=== PATIENT | female | born 2000 | race Hispanic/Latino ===

== ENCOUNTER 2018-12-31 17:17 | Emergency (ER) | payer SELFPAY ==
--- NOTE | 2018-12-31 17:56 | Event Note ---
ED Screening Note Date of service: 12/31/18 Time: 17:54 ED Screening Note: Pt complains of right ankle pain after injury x today This initial assessment/diagnostic orders/clinical plan/treatment(s) is/are subject to change based on patients health status, clinical progression and re-assessment by fellow clinical providers in the ED. Further treatment and workup at subsequent clinical providers discretion. Patient/guardian urged not to elope from the ED as their condition may be serious if not clinically assessed and managed. Initial orders include: Xr
[2018-12-31 17:57] VITALS: BP 146/93
--- NOTE | 2018-12-31 18:38 | XRay Report ---
Right ankle, 3 views INDICATION: Lateral pain following injury today FINDINGS: The ankle mortise is intact. No fracture or dislocation. No spurring or arthritic change. T here is moderate swelling over the lateral malleolus however. Again no underlying bone or joint abnor mality identified. Signer Name: Evan Bear MD Signed: 12/31/2018 6:33 PM Workstation Name: [id number]
[2018-12-31] MEDS ORDERED: ULTRAM PO ONE (19:37)
--- NOTE | 2018-12-31 20:01 | Emergency Department Report ---
ED Lower Extremity HPI - General Chief Complaint: Extremity Injury, Lower Stated Complaint: R ANKLE INJURY Time Seen by Provider: 12/31/18 19:31 Source: patient Mode of arrival: Ambulatory Limitations: No Limitations - History of Present Illness Initial Comments: Pt complains of right ankle pain after injury x today MD Complaint: ankle injury (right ankle swelling ) Onset/Timin -: days(s) Injury: Ankle: Right (right lateral swelling ) Type of Injury: eversion Place: street/outdoors Severity: moderate Severity scale (0 -10): 4 Improves With: nothing Worsens With: weight bearing, movement, palpation Context: running (twisted after missing step ) Associated Symptoms: snap/pop sensation, swelling, unable to bear weight. denies: numbness, tingling - Related Data Previous Rx's Medication Instructions Recorded Last Taken Type Acetaminophen/Codeine [Tylenol 1 tab PO Q6H PRN #12 tab 12/31/18 Unknown Rx /Codeine # 3 tab] Ibuprofen [Motrin 800 MG tab] 800 mg PO Q8HR PRN #30 tablet 12/31/18 Unknown Rx Allergies Allergy/AdvReac Type Severity Reaction Status Date / Time No Known Allergies Allergy Verified 12/31/18 17:26 ED Review of Systems ROS: Stated complaint: R ANKLE INJURY Other details as noted in HPI Constitutional: denies: chills, fever Eyes: denies: eye pain, eye discharge, vision change ENT: denies: ear pain, throat pain Respiratory: denies: cough, shortness of breath, wheezing Cardiovascular: denies: chest pain, palpitations Endocrine: no symptoms reported Gastrointestinal: denies: abdominal pain, nausea, diarrhea Genitourinary: denies: urgency, dysuria, discharge Musculoskeletal: joint swelling Skin: denies: rash, lesions Neurological: denies: headache, weakness, paresthesias Psychiatric: denies: anxiety, depression Hematological/Lymphatic: denies: easy bleeding, easy bruising ED Past Medical Hx - Social History Smoking Status: Never Smoker Substance Use Type: None - Medications Home Medications: Home Medications Medication Instructions Recorded Confirmed Last Taken Type Acetaminophen/Codeine [Tylenol 1 tab PO Q6H PRN #12 tab 12/31/18 Unknown Rx /Codeine # 3 tab] Ibuprofen [Motrin 800 MG tab] 800 mg PO Q8HR PRN #30 tablet 10/18/19 Unknown Rx ED Physical Exam - General Limitations: No Limitations General appearance: alert, in no apparent distress - Head Head exam: Present: atraumatic, normocephalic - Eye Eye exam: Present: normal appearance, PERRL, EOMI Pupils: Present: normal accommodation - ENT ENT exam: Present: mucous membranes moist - Neck Neck exam: Present: normal inspection, full ROM. Absent: tenderness, meni ngismus, lymphadenopathy, thyromegaly - Respiratory Respiratory exam: Present: normal lung sounds bilaterally. Absent: respiratory distress, stridor, chest wall tenderness - Cardiovascular Cardiovascular Exam: Present: regular rate, normal rhythm, normal heart sounds. Absent: systolic murmur, diastolic murmur, rubs, gallop - GI/Abdominal GI/Abdominal exam: Present: soft, normal bowel sounds. Absent: distended, tenderness, bruit, hernia - Rectal Rectal exam: Present: deferred - Extremities Exam Extremities exam: Present: tenderness, normal capillary refill, joint swelling (right lateral ankle ). Absent: pedal edema - Expanded Lower Extremity Exam Right Ankle exam: Present: tenderness, swelling. Absent: abrasion, laceration, ecchymosis, deformity, crepidus, dislocation, erythema, anterior draw sign Foot/Toe exam: Present: full ROM. Absent: tenderness Neuro vascular tendon exam: Absent: pulse deficit, motor deficit, sensory deficit, tendon deficit, foot drop Gait: Positive: observed and limited by pain - Back Exam Back exam: Present: normal inspection, full ROM. Absent: tenderness, muscle spasm - Neurological Exam Neurological exam: Present: alert, oriented X3, CN II-XII intact, normal gait, reflexes normal. Absent: motor sensory deficit - Expanded Neurological Exam Expanded Patient oriented to: Present: person, place, time Motor strength exam: RLE: 5, LLE: 5 DTR: ankle (R): 2+, ankle (L): 2+ Best Eye Response (Annemarie): (4) open spontaneously Best Motor Response ([place]): (6) obeys commands Best Verbal Response (Annemarie): (5) oriented Annemarie Total: 15 - Psychiatric Psychiatric exam: Present: normal affect, normal mood - Skin Skin exam: Present: warm, dry, intact, normal color. Absent: rash ED Course Vital Signs 12/31/18 12/31/18 17:54 19:47 Temperature 98.4 F Pulse Rate 87 Respiratory 16 18 Rate Blood Pressure 146/93 O2 Sat by Pulse 96 Oximetry ED Lower Extremity MDM - Radiology Data Radiology results: report reviewed, image reviewed Findings [facility] [address] [place] [address] XRay Report Signed Patient: LIA MULLINS MR#: [id number] : 2000 Acct:[id number] Age/Sex: 18 / F ADM Date: 12/31/18 Loc: ED Attending Dr: Ordering Physician: QUIANA GASTON Date of Service: 12/31/18 Procedure(s): XR ankle 3+V RT Accession Number(s): [id number] cc: QUIANA GASTON Fluoro Time In Minutes: Right ankle, 3 views INDICATION: Lateral pain following injury today FINDINGS: The ankle mortise is intact. No fracture or dislocation. No spurring or arthritic change. There is moderate swelling over the lateral malleolus however. Again no underlying bone or joint abnormality identified. Signer Name: Evan Bear MD Signed: 12/31/2018 6:33 PM Workstation Name: [id number] Transcribed By: SHABANA Dictated By: Evan Bear MD Electronically Authenticated By: Evan Bear MD Signed Date/Time: 12/31/181832 DD/ 31 TD/TT: - Medical Decision Making xray no fracture , moderate soft tissue swelling distal pulses intact, pt remains , partial weight bearing. plan, rosales wrap, rice therapy, crutches, nasaids, follow up with orthopedics in 2-3 days return to ed if symptoms worsen, pt verbalized agreement and understanding of same. Pt dc'd to home in stable condition at this time. Critical care attestation.: If time is entered above; I have spent that time in minutes in the direct care of this critically ill patient, excluding procedure time. ED Disposition Clinical Impression: Ankle sprain Qualifiers: Encounter type: initial encounter Involved ligament of ankle: unspecified ligament Laterality: right Qualified Code(s): S93.401A - Sprain of unspecified ligament of right ankle, initial encounter Disposition: DC-01 TO HOME OR SELFCARE Is pt being admited?: No Does the pt Need Aspirin: No Condition: Stable Instructions: Ankle Sprain (ED), Ankle Exercises (GEN), RICE Therapy (ED) Prescriptions: Ibuprofen [Motrin 800 MG tab] 800 mg PO Q8HR PRN #30 tablet PRN Reason: pain Acetaminophen/Codeine [Tylenol /Codeine # 3 tab] 1 tab PO Q6H PRN #12 tab PRN Reason: severe pain Referrals: VIKTORIYA ALVARADO MD [Staff Physician] - 3-5 Days Forms: Work/School Release Form(ED) Time of Disposition: 20:09
== END 2018-12-31 21:06 | disposition home or self-care (01) ==
LOC: ED 17:17
DX: S93.401A Sprain of unspecified ligament of right ankle, initial encounter (principal); X58.XXXA Exposure to other specified factors, initial encounter; Y93.89 Activity, other specified; Y92.89 Other specified places as the place of occurrence of the external cause; Y99.8 Other external cause status

== ENCOUNTER 2020-02-10 17:02 | Emergency (ER) | payer SELFPAY ==
--- NOTE | 2020-02-10 18:49 | Event Note ---
ED Screening Note Date of service: 02/10/20 Time: 18:44 ED Screening Note: 20-year-old morbid obese female presents to the emergency room for chronic back pain states today she hit her back after her knee gave out. Patient took 400 mg ibuprofen yesterday. She denies any dysuria. Last menstrual period was 01/27/2020. This initial assessment/diagnostic orders/clinical plan/treatment(s) is/are subject to change based on patients health status, clinical progression and re-assessment by fellow clinical providers in the ED. Further treatment and workup at subsequent clinical providers discretion. Multiple/guardian urged not to elope from the ED as their condition may be serious if not clinically assessed and managed. Initial orders include:
--- NOTE | 2020-02-10 19:45 | XRay Report ---
LUMBAR SPINE 3 VIEWS INDICATION / CLINICAL INFORMATION: Acute on chronic back pain status post fall. COMPARISON: None available. FINDINGS: VERTEBRAE: No acute fracture. No significant malalignment. DISC SPACES / FACET JOINTS:No significant abnormality. PARASPINAL SOFT TISSUES:No significant abnormality. ADDITIONAL FINDINGS: None. Signer Name: Raghavendra Mccain MD Signed: 02/10/2020 7:41 PM Workstation Name: [[id number]
[2020-02-10] MEDS ORDERED: oxyCODONE /ACETAMINOPHEN 5-325MG TAB PO ONE (19:58)
--- NOTE | 2020-02-10 20:01 | Emergency Department Report ---
ED Back Pain/Injury HPI - General Chief Complaint: Fall Stated Complaint: FALL INJURY/BACK/HEAD PAIN Source: patient Limitations: No Limitations - History of Present Illness MD Complaint: back pain, back injury, fall -: days(s) Similar Symptoms Previously: Yes Place: home Radiation: none Severity: mild, moderate Quality: dull Consistency: constant - Related Data Previous Rx's Medication Instructions Recorded Last Taken Type Acetaminophen/Codeine [Tylenol 1 tab PO Q6H PRN #12 tab 12/31/18 Unknown Rx /Codeine # 3 tab] Ibuprofen [Motrin 800 MG tab] 800 mg PO Q8HR PRN #30 tablet 12/31/18 Unknown Rx Ketorolac [Toradol] 10 mg PO Q6H PRN #15 tablet 02/10/20 Unknown Rx methOCARBAMOL [Robaxin TAB] 750 mg PO Q8H PRN #14 tablet 02/10/20 Unknown Rx Allergies Allergy/AdvReac Type Severity Reaction Status Date / Time No Known Allergies Allergy Verified 02/10/20 17:26 ED Review of Systems ROS: Stated complaint: FALL INJURY/BACK/HEAD PAIN Other details as noted in HPI Comment: All other systems reviewed and negative ED Past Medical Hx - Past Medical History Previous Medical History?: No - Surgical History Past Surgical History?: No - Social History Smoking Status: Never Smoker Substance Use Type: None - Medications Home Medications: Home Medications Medication Instructions Recorded Confirmed Last Taken Type Acetaminophen/Codeine [Tylenol 1 tab PO Q6H PRN #12 tab 12/31/18 Unknown Rx /Codeine # 3 tab] Ibuprofen [Motrin 800 MG tab] 800 mg PO Q8HR PRN #30 tablet 12/31/18 Unknown Rx Ketorolac [Toradol] 10 mg PO Q6H PRN #15 tablet 02/10/20 Unknown Rx methOCARBAMOL [Robaxin TAB] 750 mg PO Q8H PRN #14 tablet 02/10/20 Unknown Rx ED Physical Exam - General Limitations: No Limitations General appearance: alert, in no apparent distress - Head Head exam: Present: atraumatic, normocephalic - Eye Eye exam: Present: normal appearance, PERRL, EOMI Pupils: Present: normal accommodation - ENT ENT exam: Present: normal exam, normal orophraynx, mucous membranes moist - Neck Neck exam: Present: normal inspection - Respiratory Respiratory exam: Present: normal lung sounds bilaterally. Absent: respiratory distress - Cardiovascular Cardiovascular Exam: Present: regular rate, normal rhythm. Absent: systolic murmur, diastolic murmur, rubs, gallop - GI/Abdominal GI/Abdominal exam: Present: soft, normal bowel sounds - Extremities Exam Extremities exam: Present: normal inspection - Back Exam Back exam: Present: normal inspection, tenderness (Some tenderness at the left sacroiliac joint), muscle spasm, paraspinal tenderness, other (Negative straight leg raise). Absent: CVA tenderness (R), CVA tenderness (L), vertebral tenderness - Neurological Exam Neurological exam: Present: alert, oriented X3, CN II-XII intact, abnormal gait (Gait is antalgic due to pain) - Psychiatric Psychiatric exam: Present: normal affect, normal mood - Skin Skin exam: Present: warm, dry, intact, normal color. Absent: rash ED Course Vital Signs 02/10/20 02/10/20 17:29 20:41 Temperature 98.9 F 98.2 F Pulse Rate 108 H 80 Respiratory 18 18 Rate Blood Pressure 181/108 Blood Pressure 145/92 [Left] O2 Sat by Pulse 95 98 Oximetry ED Medical Decision Making - Radiology Data Radiology results: report reviewed [address] [place] [id number] XRay Report Signed Patient: LIA MULLINS MR#: [id number] : 2000 Acct:[id number] Age/Sex: 20 / F ADM Date: 02/10/20 Loc: ED Attending Dr: Ordering Physician: LAI AQUINO Date of Service: 02/10/20 Procedure(s): XR spine lumbosacral 2-3V Accession Number(s): [id number] cc: LAI AQUINO Fluoro Time In Minutes: LUMBAR SPINE 3 VIEWS INDICATION / CLINICAL INFORMATION: Acute on chronic back pain status post fall. COMPARISON: None available. FINDINGS: VERTEBRAE: No acute fracture. No significant malalignment. DISC SPACES / FACET JOINTS:No significant abnormality. PARASPINAL SOFT TISSUES:No significant abnormality. ADDITIONAL FINDINGS: None. Signer Name: Raghavendra Dwyer MD Signed: 02/10/2020 7:41 PM Workstation Name: [id number] Transcribed By: Dictated By: RAGHAVENDRA T. REYMUNDO Electronically Authenticated By: RAGHAVENDRA DWYER Signed Date/Time: 02/10/201940 DD/ 37 TD/TT: - Medical Decision Making Pt presents the emergency department complaining of back pain most consistent with lumbago back Pain Most Consistent with Strain/Contusion. Differential Diagnosis Includes Lumbar Go Versus Musculoskeletal Spasm, Strain Versus Sciatica. No Back Pain Red Flags on History or Physical. Presentation Not Consistent with Malignancy, Fracture, Cauda Equina, Abdominal Aortic Aneurysm, Viscus Perforation, Pulmonary Embolism, Renal Colic, Pyelonephritis. Patient reports no B symptoms, trauma trauma, incontinence, saddle anesthesia, distal weakness, urinary symptoms and is a febrile. Critical care attestation.: If time is entered above; I have spent that time in minutes in the direct care of this critically ill patient, excluding procedure time. ED Disposition Clinical Impression: Lumbago Disposition: DC-01 TO HOME OR SELFCARE Is pt being admited?: No Does the pt Need Aspirin: No Condition: Stable Instructions: Back Pain in , Acute Back Pain, Adult, Back Injury Prevention, [id number], Back Exercises, [id number], How to Use Cold Therapy, Chronic Back Pain Prescriptions: methOCARBAMOL [Robaxin TAB] 750 mg PO Q8H PRN #14 tablet PRN Reason: Pain, Moderate (4-6) Ketorolac [Toradol] 10 mg PO Q6H PRN #15 tablet PRN Reason: Pain Referrals: VIKTORIYA ALVARADO MD [Staff Physician] - 3-5 Days Forms: Work/School Release Form(ED)
[2020-02-10 20:42] VITALS: BP 145/92
== END 2020-02-10 20:29 | disposition home or self-care (01) ==
LOC: ED 17:02
DX: M54.5 Low back pain (principal); Z79.899 Other long term (current) drug therapy
CPT/HCPCS: 72100

== ENCOUNTER 2020-07-01 21:22 | Emergency (ER) | payer OTHER ==
--- NOTE | 2020-07-01 22:33 | XRay Report ---
CHEST 2 VIEWS INDICATION: Chest Pain. COMPARISON: None FINDINGS: SUPPORT DEVICES: None. HEART: Within normal limits. LUNGS/PLEURA: Except for a few tiny scattered calcific granulomata, the lungs are clear. No pneumoth orax. ADDITIONAL FINDINGS: None. IMPRESSION: 1. No acute findings. Signer Name: Mauro Novoa MD Signed: 07/01/2020 10:29 PM Workstation Name: [id number]
[2020-07-01 22:57] LABS: Basophils # (Auto) 0.1 K/mm3 (0.0-0.1); Basophils % (Auto) 0.7 % (0.0-1.8); Eosinophils # (Auto) 0.3 K/mm3 (0.0-0.4); Eosinophils % (Auto) 1.9 % (0.0-4.3); Hematocrit 42.3 % (30.3-42.9); Hemoglobin 14.4 gm/dl (10.1-14.3); Lymphocytes # (Auto) 4.5 K/mm3 (1.2-5.4); Mean Corpuscular HGB Conc 34 % (30-34); Mean Corpuscular Volume 82 fl (79-97); Monocytes % (Auto) 7.6 % (0.0-7.3); Platelet Count 434 K/mm3 (140-440); Red Blood Count 5.13 M/mm3 (3.65-5.03); Red Cell Distribution Width 14.3 % (13.2-15.2)
[2020-07-01 23:19] LABS: Alanine Aminotransferase 51 units/L (7-56); Albumin 4.4 g/dL (3.9-5); Blood Urea Nitrogen 10 mg/dL (7-17); Calcium 9.6 mg/dL (8.4-10.2); Hemolysis Index 9
[2020-07-01 23:20] LABS: BUN/Creatinine Ratio 17
--- NOTE | 2020-07-02 06:11 | Emergency Department Report ---
ED General Adult HPI - General Chief complaint: Chest Pain Stated complaint: CHEST PAIN/NAUSEA/STOMACH PAIN Time Seen by Provider: 07/02/20 06:11 Source: patient Mode of arrival: Ambulatory Limitations: No Limitations - History of Present Illness Initial comments: Patient is a 20-year-old female, with suspected history of PCOS, who presents to the emergency department for evaluation of intermittent sharp central chest pain x1 month which was acutely worse this morning. Patient notes pain is pleuritic, awoke her from sleep this morning. Patient denies cough, denies fever, denies calf pain or swelling, denies exertional symptoms. Patient denies shortness of breath. - Related Data Previous Rx's Medication Instructions Recorded Last Taken Type Acetaminophen/Codeine [Tylenol 1 tab PO Q6H PRN #12 tab 12/31/18 Unknown Rx /Codeine # 3 tab] Ibuprofen [Motrin 800 MG tab] 800 mg PO Q8HR PRN #30 tablet 12/31/18 Unknown Rx Ketorolac [Toradol] 10 mg PO Q6H PRN #15 tablet 02/10/20 Unknown Rx methOCARBAMOL [Robaxin TAB] 750 mg PO Q8H PRN #14 tablet 02/10/20 Unknown Rx Allergies Allergy/AdvReac Type Severity Reaction Status Date / Time No Known Allergies Allergy Verified 02/10/20 17:26 ED Review of Systems ROS: Stated complaint: CHEST PAIN/NAUSEA/STOMACH PAIN Other details as noted in HPI Comment: All other systems reviewed and negative ED Past Medical Hx - Past Medical History Previous Medical History?: No Additional medical history: PCOS - Social History Smoking Status: Current Every Day Smoker - Medications Home Medications: Home Medications Medication Instructions Recorded Confirmed Last Taken Type Acetaminophen/Codeine [Tylenol 1 tab PO Q6H PRN #12 tab 12/31/18 Unknown Rx /Codeine # 3 tab] Ibuprofen [Motrin 800 MG tab] 800 mg PO Q8HR PRN #30 tablet 12/31/18 Unknown Rx Ketorolac [Toradol] 10 mg PO Q6H PRN #15 tablet 02/10/20 Unknown Rx methOCARBAMOL [Robaxin TAB] 750 mg PO Q8H PRN #14 tablet 02/10/20 Unknown Rx ED Physical Exam - General Limitations: No Limitations General appearance: alert, in no apparent distress - Head Head exam: Present: atraumatic, normocephalic - Eye Eye exam: Present: normal appearance - ENT ENT exam: Present: mucous membranes moist - Neck Neck exam: Present: normal inspection - Respiratory Respiratory exam: Present: normal lung sounds bilaterally. Absent: respiratory distress - Cardiovascular Cardiovascular Exam: Present: regular rate, normal rhythm - GI/Abdominal GI/Abdominal exam: Present: soft, normal bowel sounds - Extremities Exam Extremities exam: Present: normal inspection - Back Exam Back exam: Present: normal inspection - Neurological Exam Neurological exam: Present: alert, oriented X3 - Psychiatric Psychiatric exam: Present: normal affect, normal mood - Skin Skin exam: Present: warm, dry, intact, normal color. Absent: rash ED Course Vital Signs 07/01/20 07/02/20 07/02/20 22:05 05:36 05:46 Temperature 97.8 F Pulse Rate 120 H 72 90 Respiratory 18 25 H 25 H Rate Blood Pressure 213/111 162/92 O2 Sat by Pulse 97 100 99 Oximetry 07/02/20 07/02/20 07/02/20 06:00 06:16 06:30 Temperature Pulse Rate 89 96 H 90 Respiratory 21 25 H 16 Rate Blood Pressure 184/106 184/106 184/106 O2 Sat by Pulse 98 98 100 Oximetry 07/02/20 07/02/20 07/02/20 06:46 07:16 07:46 Temperature Pulse Rate 98 H 97 H 90 Respiratory 28 H 17 23 Rate Blood Pressure 184/106 146/92 158/87 O2 Sat by Pulse 97 99 96 Oximetry 07/02/20 07/02/20 08:16 09:00 Temperature Pulse Rate 89 94 H Respiratory 26 H 14 Rate Blood Pressure 137/79 151/101 O2 Sat by Pulse 97 99 Oximetry - Reevaluation(s) Reevaluation #1: 07/02/20 06:22 Patient initially treated with Toradol IV 15mg, 1L IVNS, and clonidine 0.1mg PO. CTA chest ordered as d-dimer in lab currently not running secondary to technical failure 07/02/20 06:25 07/02/20 06:25 07/02/20 12:12 Patient reevaluated and in no acute distress, states her pain is resolved. Blood pressure is improved. Patient advised to follow-up with primary care doctor in 1 to 2 days for reevaluation of blood pressure management. ED Medical Decision Making - Lab Data Result diagrams: 07/01/20 22:37 07/01/20 22:37 Labs 07/01/20 07/01/20 07/02/20 22:37 22:37 06:56 WBC 13.3 H RBC 5.13 H Hgb 14.4 H Hct 42.3 MCV 82 MCH 28 MCHC 34 RDW 14.3 Plt Count 434 Lymph % (Auto) 34.0 [place] % (Auto) 7.6 H Eos % (Auto) 1.9 Baso % (Auto) 0.7 Lymph # (Auto) 4.5 [place] # (Auto) 1.0 H Eos # (Auto) 0.3 Baso # (Auto) 0.1 Seg Neutrophils % 55.8 Seg Neutrophils # 7.4 Sodium 139 Potassium 4.2 Chloride 100.2 Carbon Dioxide 29 Anion Gap 14 BUN 10 Creatinine 0.6 Estimated GFR > 60 BUN/Creatinine Ratio 17 Glucose 116 H Calcium 9.6 Total Bilirubin < 0.20 AST 31 ALT 51 Alkaline Phosphatase 70 Troponin T < 0.010 Total Protein 8.3 H Albumin 4.4 Albumin/Globulin Ratio 1.1 HCG, Qual 07/02/20 06:56 WBC RBC Hgb Hct MCV MCH MCHC RDW Plt Count Lymph % (Auto) [place] % (Auto) Eos % (Auto) Baso % (Auto) Lymph # (Auto) [place] # (Auto) Eos # (Auto) Baso # (Auto) Seg Neutrophils % Seg Neutrophils # Sodium Potassium Chloride Carbon Dioxide Anion Gap BUN Creatinine Estimated GFR BUN/Creatinine Ratio Glucose Calcium Total Bilirubin AST ALT Alkaline Phosphatase Troponin T Total Protein Albumin Albumin/Globulin Ratio HCG, Qual Negative Vital Signs (72 hours) 07/01/20 07/02/20 07/02/20 22:05 05:36 05:46 Temperature 97.8 F Pulse Rate 120 H 72 90 Respiratory 18 25 H 25 H Rate Blood Pressure 213/111 162/92 O2 Sat by Pulse 97 100 99 Oximetry 07/02/20 07/02/20 07/02/20 06:00 06:16 06:30 Temperature Pulse Rate 89 96 H 90 Respiratory 21 25 H 16 Rate Blood Pressure 184/106 184/106 184/106 O2 Sat by Pulse 98 98 100 Oximetry 07/02/20 07/02/20 07/02/20 06:46 07:16 07:46 Temperature Pulse Rate 98 H 97 H 90 Respiratory 28 H 17 23 Rate Blood Pressure 184/106 146/92 158/87 O2 Sat by Pulse 97 99 96 Oximetry 07/02/20 07/02/20 08:16 09:00 Temperature Pulse Rate 89 94 H Respiratory 26 H 14 Rate Blood Pressure 137/79 151/101 O2 Sat by Pulse 97 99 Oximetry - EKG Data -: EKG Interpreted by Me (ST at 113, (-) ST-T changes, normal QRs) - Radiology Data Radiology results: report reviewed CTA chest negative per radiology Critical care attestation.: If time is entered above; I have spent that time in minutes in the direct care of this critically ill patient, excluding procedure time. ED Disposition Clinical Impression: Chest pain, Hypertensive disorder Disposition: DC-01 TO HOME OR SELFCARE Is pt being admited?: No Condition: Stable Instructions: Nonspecific Chest Pain, Adult, Hypertension (ED) Additional Instructions: Follow-up with primary care doctor in 1 to 2 days for reevaluation. Return to the emergency department for worsening symptoms. Referrals: PRIMARY CARE, [Primary Care Provider] - 3-5 Days Forms: Work/School Release Form(ED)
[2020-07-02] MEDS ORDERED: KETOROLAC 30 MG/1 ML INJ IV ONE (06:20)
[2020-07-02] MEDS ORDERED: cloNIDine 0.1 MG TAB PO ONE (06:24)
[2020-07-02] MEDS ORDERED: SODIUM CHLORIDE 0.9% 1000 ML 1,000 ML IV ONE (06:25)
--- NOTE | 2020-07-02 08:53 | Cat Scan Report ---
. CTA CHEST WITH CONTRAST INDICATION : MAIN. TECHNIQUE: Axial imaging performed through the chest, with contrast bolus timing set to maximize opa cification of the pulmonary arteries. Sagittal and coronal reformatted images. 3-plane MIP reformatte d images were obtained. All CT scans at this location are performed using CT dose reduction for ALAR A by means of automated exposure control. 100 mL of intravenous contrast administered. COMPARISON: Chest x-ray performed the same day FINDINGS: Bolus: Contrast bolus timing is adequate. PTE: No filling defect is present to suggest PTE. Mediastinum: Heart and great vessels appear normal. No pathologic mediastinal adenopathy. Lungs: Lungs are clear. Bones: Degenerative changes in the spine with nothing acute. Upper abdomen: Moderate hepatic steatosis is evident. IMPRESSION: Negative for PTE. Clear lungs. Hepatic steatosis. Signer Name: Reji Conley Jr, MD Signed: 07/02/2020 8:49 AM Workstation Name: [id number]
[2020-07-02 09:02] VITALS: BP 151/101
--- NOTE | 2020-07-02 13:49 | Electrocardiograph Report ---
[facility] Test Date: 2020-07-01 Test Time: 22:08:06 Pat Name: LIA MULLINS Department: Room: Gender: F Code Inspector: : 2000 Requested By: DAMIÁN MCCALL Order Number: [id number] Reading MD: Tez Pierre Measurements Intervals [place] Rate: 113 P: 63 IA: 131 QRS: 55 QRSD: 92 T: 33 QT: 324 QTc: 444 Interpretive Statements Sinus tachycardia No previous ECG available for comparison Electronically Signed On 07-02-2020 13:48:46 EDT by Tez Pierre
== END 2020-07-02 19:00 | disposition home or self-care (01) ==
LOC: ED 21:22
DX: R07.89 Other chest pain (principal); I10 Essential (primary) hypertension; F17.200 Nicotine dependence, unspecified, uncomplicated; Z79.1 Long term (current) use of non-steroidal anti-inflammatories (NSAID); Z79.899 Other long term (current) drug therapy
CPT/HCPCS: 36415; 71046; 71275; 80053; 85025; 93005; 96361; 96374; 99284; J1885; J7030; Q9967

== ENCOUNTER 2020-09-10 01:35 | Emergency (ER) | payer OTHER ==
--- NOTE | 2020-09-10 02:28 | XRay Report ---
Left ankle 3 views INDICATION: Left ankle pain following injury IMPRESSION: Mild swelling overlying the lateral malleolus. No fracture or subluxation identified. Signer Name: Júnior Zuniga MD Signed: 09/10/2020 2:23 AM Workstation Name: [id number]
--- NOTE | 2020-09-10 04:54 | Emergency Department Report ---
ED Lower Extremity HPI - General Chief Complaint: Extremity Injury, Lower Stated Complaint: FELL/HEAD/LEFT ANKLE INJURY Source: patient, EMS Mode of arrival: Wheelchair Limitations: Physical Limitation - History of Present Illness Initial Comments: Patient is a 20-year-old female with a history of morbid obesity, anxiety, hypertension and GERD who presents to the ED with complaint of acute onset persistent severe left ankle pain and swelling after she tripped and twisted her left ankle about 2 hours ago while walking on the [address] with her boyfriend. Patient states that she fell as a result of twisting her left ankle and felt a "pop sound" on the left ankle as a result of the twisting injury. Patient denies head or neck injuries, dizziness, syncope, seizures, nausea and vomiting, low back pain, knee pain, back pain, hip pain, change in vision, numbness and tingling or weakness of lower extremities bilaterally. MD Complaint: ankle injury (Severe left ankle pain and swelling) -: Sudden, hour(s) (3) Injury: Ankle: Left (pain and swelling) Type of Injury: inversion Place: street/outdoors Severity: severe Severity scale (0 -10): 8 Improves With: nothing Worsens With: weight bearing, movement, palpation Context: walking (Slipped and fell down) Associated Symptoms: snap/pop sensation, swelling, able to partially bear weight. denies: numbness, tingling, unable to bear weight - Related Data Previous Rx's Medication Instructions Recorded Last Taken Type Acetaminophen/Codeine [Tylenol 1 tab PO Q6H PRN #12 tab 12/31/18 Unknown Rx /Codeine # 3 tab] Ketorolac [Toradol] 10 mg PO Q6H PRN #15 tablet 02/10/20 Unknown Rx Ibuprofen [Motrin 800 MG tab] 800 mg PO Q8HR PRN #30 tablet 09/10/20 Unknown Rx methOCARBAMOL [Robaxin TAB] 750 mg PO Q8H PRN #24 tablet 09/10/20 Unknown Rx traMADoL [Ultram] 50 mg PO Q6HR PRN #12 tablet 09/10/20 Unknown Rx Allergies Allergy/AdvReac Type Severity Reaction Status Date / Time No Known Allergies Allergy Verified 02/10/20 17:26 ED Review of Systems ROS: Stated complaint: FELL/HEAD/LEFT ANKLE INJURY Other details as noted in HPI Constitutional: denies: chills, fever Eyes: denies: eye pain, eye discharge, vision change ENT: denies: ear pain, throat pain Respiratory: denies: cough, shortness of breath, wheezing Cardiovascular: denies: chest pain, palpitations Endocrine: no symptoms reported Gastrointestinal: denies: abdominal pain, nausea, diarrhea Genitourinary: denies: urgency, dysuria, discharge Musculoskeletal: joint swelling (Left ankle pain and swelling), arthralgia (Left ankle pain and swelling). denies: back pain Skin: denies: rash, lesions Neurological: denies: headache, weakness, paresthesias Psychiatric: denies: anxiety, depression Hematological/Lymphatic: denies: easy bleeding, easy bruising ED Past Medical Hx - Past Medical History Previous Medical History?: Yes Hx Hypertension: Yes Hx GERD: Yes Additional medical history: PCOS/ Anxeity - Surgical History Past Surgical History?: No - Social History Smoking Status: Current Every Day Smoker - Medications Home Medications: Home Medications Medication Instructions Recorded Confirmed Last Taken Type Acetaminophen/Codeine [Tylenol 1 tab PO Q6H PRN #12 tab 12/31/18 Unknown Rx /Codeine # 3 tab] Ketorolac [Toradol] 10 mg PO Q6H PRN #15 tablet 02/10/20 Unknown Rx Ibuprofen [Motrin 800 MG tab] 800 mg PO Q8HR PRN #30 tablet 09/10/20 Unknown Rx methOCARBAMOL [Robaxin TAB] 750 mg PO Q8H PRN #24 tablet 09/10/20 Unknown Rx traMADoL [Ultram] 50 mg PO Q6HR PRN #12 tablet 09/10/20 Unknown Rx ED Physical Exam - General Limitations: Physical Limitation General appearance: alert, in no apparent distress - Head Head exam: Present: atraumatic, normocephalic, normal inspection - Eye Eye exam: Present: normal appearance, PERRL, EOMI Pupils: Present: normal accommodation - ENT ENT exam: Present: normal exam, normal orophraynx, mucous membranes moist, TM's normal bilaterally, normal external ear exam - Neck Neck exam: Present: normal inspection, full ROM. Absent: tenderness - Respiratory Respiratory exam: Present: normal lung sounds bilaterally. Absent: respiratory distress, wheezes, rales, rhonchi, chest wall tenderness, accessory muscle use, decreased breath sounds, prolonged expiratory - Cardiovascular Cardiovascular Exam: Present: regular rate, normal rhythm. Absent: systolic murmur, diastolic murmur, rubs, gallop - GI/Abdominal GI/Abdominal exam: Present: soft, normal bowel sounds. Absent: tenderness, guarding, rebound, hyperactive bowel sounds, hypoactive bowel sounds, organomegaly - Extremities Exam Extremities exam: Present: normal inspection, tenderness (Palpable severe left ankle tenderness with limited range of motion due to pain, mild swelling), normal capillary refill, joint swelling (Mild left ankle swelling). Absent: full ROM (Limited range of motion of left ankle due to pain) - Back Exam Back exam: Present: normal inspection, full ROM. Absent: tenderness, CVA tenderness (R), CVA tenderness (L), muscle spasm, vertebral tenderness - Neurological Exam Neurological exam: Present: alert, oriented X3, CN II-XII intact, normal gait, reflexes normal - Psychiatric Psychiatric exam: Present: normal affect, normal mood - Skin Skin exam: Present: warm, dry, intact, normal color. Absent: rash ED Course Vital Signs 09/10/20 09/10/20 01:41 05:23 Temperature 98.4 F Pulse Rate 123 H 93 H Respiratory 20 17 Rate Blood Pressure 178/102 Blood Pressure 143/77 [Right] O2 Sat by Pulse 96 97 Oximetry ED Lower Extremity MDM - Radiology Data Radiology results: report reviewed, image reviewed [facility] [address] [place] [address] XRay Report Signed Patient: LIA MULLINS MR#: [id number] : 2000 Acct:[id number] Age/Sex: 20 / F ADM Date: 09/10/20 Loc: ED Attending Dr: Ordering Physician: BETTY FROST MD Date of Service: 09/10/20 Procedure(s): XR ankle 3+V LT Accession Number(s): [id number] cc: ED MD MARGOT Fluoro Time In Minutes: Left ankle 3 views INDICATION: Left ankle pain following injury IMPRESSION: Mild swelling overlying the lateral malleolus. No fracture or subluxation identified. Signer Name: Júnior Zuniga MD Signed: 09/10/2020 2:23 AM Workstation Name: [id number] Transcribed By: BC Dictated By: Júnior Zuniga MD Electronically Authenticated By: Júnior Zuniga MD Signed Date/Time: 09/10/20222 DD/ 2 TD/TT: - Medical Decision Making This is a 20-year-old female with a history of morbid obesity, anxiety, hypertension and GERD who presents to the ED with complaint of acute onset persistent severe left ankle pain and swelling after she tripped and twisted her left ankle about 2 hours ago while walking on the street with her boyfriend. Patient states that she fell as a result of twisting her left ankle and felt a "pop sound" on the left ankle as a result of the twisting injury. In the ED, patient is alert and oriented x3 and is not in distress but appears to be in pain, anxious and tachycardic but afebrile in triage. Patient was treated for pain in the ED and left ankle x-ray showed no acute fractures or subluxations but a mild swelling overlying the lateral malleolus. Patient left ankle was therefore splinted with Ricky wrap. On reevaluation, patient pain is well controlled medications. Patient will discharge home on pain medications and advised to follow-up with her primary care physician in 5 to 7 days for reevaluation. Patient is advised return to the ED immediately if symptoms get worse. - Differential Diagnosis Ankle fracture; ankle sprain; ankle muscle strain; ankle contusion Critical care attestation.: If time is entered above; I have spent that time in minutes in the direct care of this critically ill patient, excluding procedure time. ED Disposition Clinical Impression: Severe sprain of left ankle Qualifiers: Encounter type: initial encounter Qualified Code(s): S93.402A - Sprain of unspecified ligament of left ankle, initial encounter Muscle strain of left ankle Qualifiers: Encounter type: initial encounter Qualified Code(s): S96.912A - Strain of unspecified muscle and tendon at ankle and foot level, left foot, initial encounter Disposition: - TO HOME OR SELFCARE Is pt being admited?: No Does the pt Need Aspirin: No Condition: Stable Instructions: Ankle Sprain, [id number], Muscle Strain, [id number] Additional Instructions: The left ankle x-ray showed no acute fractures or subluxations. Therefore take medications with food, drink plenty of fluids and follow-up with your primary care physician in 5 to 7 days for reevaluation. Return to the ED immediately if symptoms get worse. Prescriptions: Ibuprofen [Motrin 800 MG tab] 800 mg PO Q8HR PRN #30 tablet PRN Reason: pain methOCARBAMOL [Robaxin TAB] 750 mg PO Q8H PRN #24 tablet PRN Reason: Muscle Spasm traMADoL [Ultram] 50 mg PO Q6HR PRN #12 tablet PRN Reason: Pain Referrals: [facility] [Provider Group] - 7-10 days Time of Disposition: 04:57 Print Language: [place]APORE[place]
[2020-09-10 06:04] VITALS: BP 143/77
== END 2020-09-10 05:23 | disposition home or self-care (01) ==
LOC: ED 01:35
DX: S93.402A Sprain of unspecified ligament of left ankle, initial encounter (principal); S96.912A Strain of unspecified muscle and tendon at ankle and foot level, left foot, initial encounter; E66.01 Morbid (severe) obesity due to excess calories; F41.9 Anxiety disorder, unspecified; I10 Essential (primary) hypertension; K21.9 Gastro-esophageal reflux disease without esophagitis; F17.200 Nicotine dependence, unspecified, uncomplicated; Z79.899 Other long term (current) drug therapy; Z68.43 Body mass index [BMI] 50.0-59.9, adult; W18.30XA Fall on same level, unspecified, initial encounter; Y93.89 Activity, other specified; Y92.410 Unspecified street and highway as the place of occurrence of the external cause; Y99.8 Other external cause status